=== PATIENT | male | born 1960 | race African-American/Black ===

== ENCOUNTER 2021-07-29 04:08 | Inpatient (IN) | payer OTHER ==
[~2021-07-29] VITALS: Ht 180.3 cm; Wt 77.3 kg
--- NOTE | 2021-07-29 17:11 | NUR ---
PATIENT RIGHT RADIAL TR BAND AIR REMOVED PER INSTRUCTED. PATIENT TOLERATED WELL. NO BLEEDING OR BRUISING NOTED WILL CONTINUE TO MONITOR
[2021-07-30 08:49] LABS: HEMOGLOBIN 14.5 gm/dl (14.0-17.5); RED BLOOD COUNT 5.16 M/UL (4.20-5.50); WHITE BLOOD COUNT 11.6 K/UL (4.5-11.0)
[2021-07-30 09:20] LABS: BUN/CREATININE RATIO 13 (0-10)
[2021-07-30] MEDS ORDERED: ASPIRIN EC81 MG PO (10:51)
[2021-07-30] MEDS ORDERED: LIPITOR80 MG PO (10:51)
[2021-07-30] MEDS ORDERED: PROTONIX 40 MG40 M1 PO (10:51)
[2021-07-30] MEDS ORDERED: LOPRESSOR 25 MG25 MG PO (10:51)
[2021-07-30] MEDS ORDERED: BRILINTA 90 MG90 MG PO (10:51)
== END 2021-07-30 16:14 | disposition home or self-care (01) | DRG 247 ==
LOC: PROG CARE 04:08
PROVIDERS: ADMIT Internal Medicine
PROC: 4A023N7 Measurement of Cardiac Sampling and Pressure, Left Heart, Percutaneous Approach (ICD-10-PCS; principal; 2021-07-29)
PROC: 027035Z Dilation of Coronary Artery, One Artery with Two Drug-eluting Intraluminal Devices, Percutaneous Approach (ICD-10-PCS; 2021-07-29)
PROC: B2111ZZ Fluoroscopy of Multiple Coronary Arteries using Low Osmolar Contrast (ICD-10-PCS; 2021-07-29)
PROC: B2151ZZ Fluoroscopy of Left Heart using Low Osmolar Contrast (ICD-10-PCS; 2021-07-29)
PROC: B245ZZ3 Ultrasonography of Left Heart, Intravascular (ICD-10-PCS; 2021-07-29)
PROC: B24BZZ4 Ultrasonography of Heart with Aorta, Transesophageal (ICD-10-PCS; 2021-07-29)
DX: I21.4 Non-ST elevation (NSTEMI) myocardial infarction (principal); Z20.822 Contact with and (suspected) exposure to COVID-19; F17.210 Nicotine dependence, cigarettes, uncomplicated; I10 Essential (primary) hypertension; E78.5 Hyperlipidemia, unspecified; I25.10 Atherosclerotic heart disease of native coronary artery without angina pectoris; Z82.49 Family history of ischemic heart disease and other diseases of the circulatory system; Z79.82 Long term (current) use of aspirin; Z79.899 Other long term (current) drug therapy
CPT/HCPCS: ECHO; 36415; 80053; 80061; 82550; 82553; 83036; 84484; 85025; 85347; 85730; 92978; 93005; 93306; 99152; 99153; C1725; C1753; C1769; C1874; C1887; C1894; C9600; J0461; J1644; J2250; J3010; J7040; Q9967

== ENCOUNTER 2021-08-17 15:00 | Emergency (ER) | payer OTHER ==
[~2021-08-17 15:00] MED LIST: ASPIRIN EC81 MG PO; BRILINTA 90 MG90 MG PO; LIPITOR80 MG PO; LOPRESSOR 25 MG25 MG PO; PROTONIX 40 MG40 M1 PO
[2021-08-17 17:34] LABS: HEMOGLOBIN 13.7 gm/dl (14.0-17.5); RED BLOOD COUNT 5.26 M/UL (4.20-5.50); WHITE BLOOD COUNT 9.2 K/UL (4.5-11.0)
[2021-08-17 18:28] LABS: BUN/CREATININE RATIO 15 (0-10)
[2021-08-17] MEDS ORDERED: OMNICEF 300 MG300 MG PO (19:26)
== END 2021-08-17 19:55 | disposition home or self-care (01) ==
LOC: ER1 15:00
PROVIDERS: Physician Assistant Medical
DX: N40.0 Benign prostatic hyperplasia without lower urinary tract symptoms (principal); R31.9 Hematuria, unspecified; I51.9 Heart disease, unspecified; F17.210 Nicotine dependence, cigarettes, uncomplicated
CPT/HCPCS: 80053; 81001; 85025; 85610; 87086; 99284